=== PATIENT | female | born 1950 | race African-American/Black ===

== ENCOUNTER 2018-08-18 15:47 | Outpatient (CLI) | payer OTHER ==
--- NOTE | 2018-08-18 16:43 | ULT ---
ULTRASOUND WITH DOPPLER DUPLEX VENOUS LOWER EXTREMITY LEFT: HISTORY: A 68-year-old female with left lower extremity pain in the popliteal region. TECHNIQUE: Color flow Doppler, spectral waveform analysis of pulsed Doppler, and sprague-scale imaging with kota brayden and augmentation, were used to evaluate the left common femoral, femoral, popliteal, posterior t ibial, and superficial femoral, veins; and the proximal portions of the profunda femoral and greater saphenous, veins. FINDINGS: There is normal compressibility, demonstration of blood flow by color Doppler and pulsed Doppler, and response to augmentation, in all interrogated veins. IMPRESSION: Negative. No deep vein thrombosis in the left lower extremity. jn[] POS: [facility]
== END 2018-08-18 15:48 | disposition home or self-care (01) ==
LOC: BICULT 15:47
PROVIDERS: ATTEND Internal Medicine
DX: M79.662 Pain in left lower leg (principal)